=== PATIENT | female | born 1960 | race Caucasian/White ===

== ENCOUNTER → 2017-09-23 15:17 | Outpatient (CLI) | payer MEDICARE, OTHER, SELFPAY ==
--- NOTE | 2017-09-23 15:24 | DI.MRI.S_ITS ---
PROCEDURE: MR CERVICAL SPINE WO CON INDICATIONS: Neck pain with parasthesias of hands an fingers TECHNIQUE: Noncontrast sagittal T1 spin echo and T2 fast spin echo, sagittal STIR, foraminal oblique sagittal T2 fast spin echo, and axial gradient echo or T2 fast spin echo through the cervical spine. COMPARISON: [facility], CERVICAL SPINE 2 OR 3 VIEWS, 06/23/2017, 14:24. FINDINGS: Image quality: Excellent. Alignment and Curvature: There is normal bony alignment. Bone Marrow: Marrow demonstrates normal overall signal. Spinal Cord: Visualized spinal cord has normal size and signal. No cerebellar tonsillar herniation. Paraspinous Soft Tissues: No paravertebral masses. Prevertebral soft tissues are normal in thickness. C2-C3: Preserved disc height. Mild disc desiccation. There is mild posterior disc bulge. The central canal is patent. No foraminal stenosis. C3-C4: Preserved disc height. Mild disc desiccation. There is mild posterior disc bulge. Mild bilateral facet arthropathy. The central canal is patent. Mild bilateral foraminal stenosis. C4-C5: Preserved disc height. Mild disc desiccation. There is mild posterior disc bulge. Mild bilateral facet arthropathy. The central canal is patent. Mild bilateral foraminal stenosis. C5-C6: Preserved disc height. Mild disc desiccation. There is mild posterior disc bulge. Mild bilateral facet arthropathy. The central canal is patent. Mild bilateral foraminal stenosis. C6-C7: Mild loss of disc height and disc desiccation. There is diffuse circumferential disc bulge and disc osteophyte complex. Uncovertebral hypertrophy. The central canal is moderately narrowed. Mild bilateral foraminal stenosis. C7-T1: Normal appearance. IMPRESSION: 1. Multilevel degenerative disc disease and facet arthropathy as described. 2. Moderate central canal stenosis at C6-C7. 3. Multilevel mild foraminal stenosis bilaterally as described. Dictated by: Jerri Armendariz M.D. on 09/23/2017 at 15:17 Approved by: Jerri Armendariz M.D. on 09/23/2017 at 15:24
--- NOTE | 2017-09-23 15:24 | DI.MRI.S_ITS ---
PROCEDURE: MR LUMBAR SPINE WO CON INDICATIONS: Low back pain w/radiation to left leg TECHNIQUE: Noncontrast sagittal T1 spin echo and T2 fast echo, sagittal STIR, axial T1 and T2 fast spin echo through the lumbar spine. In cases with scoliosis, additional coronal T2 fast spin echo may be performed. COMPARISON: [facility], , L-SPINE 2-3 VIEWS, 10/10/2016, 15:15. FINDINGS: Image quality: Excellent. Alignment and Curvature: There is normal bony alignment. Bone Marrow: Marrow is of normal overall signal. No acute vertebral body compression fractures. Spinal Cord: Conus medullaris terminates at the L1 level. Visualized cord demonstrates normal signal and size. Paraspinous Soft Tissues: No paravertebral masses. L1-L2: Normal appearance. L2-L3: Normal appearance. L3-L4: Mild loss of disc height and disc desiccation. There is diffuse posterior disc bulge. Mild bilateral facet arthropathy and hypertrophy of ligamentum flavum. The central canal is mildly narrowed. No significant foraminal stenosis. L4-L5: Preserved disc height. Mild disc desiccation. There is diffuse posterior disc bulge and small posterior central annular tear. Mild bilateral facet arthropathy and hypertrophy of ligamentum flavum. The central canal is patent. No significant foraminal stenosis. L5-S1: Moderate loss of disc height and disc desiccation. There is diffuse posterior disc bulge and small posterior central annular tear. Mild bilateral facet arthropathy. The central canal is patent. Bxcy-bx-obrzjkvl bilateral foraminal stenosis. There is Tarlov cyst level of S1-S2. IMPRESSION: 1. Multilevel degenerative disc disease and facet arthropathy as described. 2. Mild central canal stenosis at L3-L4. 3. Zeyc-hh-rtqawrmm foraminal stenosis at L5-S1 bilaterally. 4. Tarlov cyst in sacrum at the level of S1-S2. Dictated by: Jerri Armendariz M.D. on 09/23/2017 at 17:09 Transcribed by: GRACY on 09/23/2017 at 17:09 Approved by: Jerri Armendariz M.D. on 09/23/2017 at 17:48
== END ==
PROVIDERS: Family Provider Physician Assistant; PCP Physician Assistant; Visit Provider Physician Assistant
DX: M50.31 Other cervical disc degeneration, high cervical region (principal); M48.02 Spinal stenosis, cervical region; M51.16 Intervertebral disc disorders with radiculopathy, lumbar region; M48.07 Spinal stenosis, lumbosacral region; M48.061 Spinal stenosis, lumbar region without neurogenic claudication; R20.2 Paresthesia of skin; M54.5 Low back pain
CPT/HCPCS: 72141; 72148

== ENCOUNTER → 2017-11-19 12:26 | Outpatient (CLI) | payer MEDICARE, OTHER, SELFPAY ==
--- NOTE | 2017-11-19 12:27 | DI.MG.S_ITS ---
BILATERAL DIGITAL DIAGNOSTIC MAMMOGRAM 3D/2D: 11/19/2017 CLINICAL: Left breast pain. Comparison is made to exams dated: 10/03/2016 mammogram, 11/30/2012 mammogram - [facility], and 08/23/2009 mammogram - [facility]. The tissue of both breasts is heterogeneously dense. This may lower the sensitivity of mammography. There is an irregular focal asymmetry in the left breast at 10 o'clock middle depth. No other significant masses, calcifications, or other findings are seen in either breast. IMPRESSION: INCOMPLETE: NEEDS ADDITIONAL IMAGING EVALUATION The irregular focal asymmetry in the left breast is indeterminate. An ultrasound is recommended. There is no mammographic abnormality seen in the left breast to correspond with the palpable abnormality, however, ultrasound is recommended. This exam was interpreted at Station ID: [id number]. NOTE: For mammograms, a report in lay terms will be sent to the patient. Approximately 15% of breast malignancies will not be visualized mammographically. In the management of a palpable breast mass, a negative mammogram must not discourage biopsy of a clinically suspicious lesion. Electronically Signed By: Minnie denise/gianni:11/19/2017 14:19:37 letter sent: Additional Imaging Needed ACR BI-RADS Category 0: Incomplete 3340F
--- NOTE | 2017-11-19 12:27 | DI.US.S_ITS ---
ULTRASOUND OF LEFT BREAST: 11/19/2017 CLINICAL: Focal left breast pain. Patient returns for additional imaging over a suspected mass in the left breast. Comparison is made to exams dated: 11/19/2017 mammogram, 10/03/2016 mammogram, and 11/30/2012 mammogram - [facility]. Color flow ultrasound of the left breast was performed on the areas of interest. Bueno scale images of the real-time examination were reviewed. There is a cluster of microcysts in the left breast at 9 o'clock middle depth. This correlates with mammography findings. IMPRESSION: PROBABLY BENIGN - FOLLOW-UP RECOMMENDED The cluster of microcysts in the left breast is probably benign. A follow-up mammogram in 6 months is recommended to demonstrate stability. There is no mammographic or sonographic abnormality seen in the left breast to correspond with the palpable abnormality, however, clinical followup is recommended. This exam was interpreted at Station ID: [id number]. Electronically Signed By: Minnie denies/:11/19/2017 15:52:16 letter sent: Followup Recommended Ultrasound BI-RADS: 3 Probably benign
== END ==
PROVIDERS: Family Provider Physician Assistant; PCP Physician Assistant; Visit Provider Physician Assistant
DX: R92.0 Mammographic microcalcification found on diagnostic imaging of breast (principal); N64.4 Mastodynia
CPT/HCPCS: 76642; 77066; G0279

== ENCOUNTER → 2018-10-19 10:33 | Outpatient (CLI) | payer MEDICARE, OTHER, SELFPAY ==
[2018-10-19 11:22] LABS: Alanine Aminotransferase 26 IU/L (9-52); Albumin 4.3 g/dL (3.5-5.0); Albumin Globulin Ratio 1.4 (1.0-2.8); Alkaline Phosphatase 98 U/L (38-126); Aspartate Aminotransferase 22 IU/L (14-36); BUN Creatinine Ratio 16.7 (6-22); Bilirubin Total 0.5 mg/dL (0.2-1.3); Blood Urea Nitrogen 15 mg/dL (7-17); Calcium 9.7 mg/dL (8.4-10.2); Carbon Dioxide 30 mmol/L (22-32); Chloride 104 mmol/L (98-107); Cholesterol 187 mg/dL (140-199); Estimated Glomerular Filt Rate > 60.0 mL/min (>60); Globulin 3.1 g/dL (1.7-4.1); Glucose 94 mg/dL (70-100); HDL Cholesterol 73 mg/dL (40-60); HEMOLYSIS < 15 (0-50); LDL Cholesterol Calculated 101 mg/dL (<100); Potassium 4.7 mmol/L (3.4-5.1); Sodium 140 mmol/L (137-145); Total Protein 7.4 g/dL (6.3-8.2); Triglycerides 66 mg/dL (35-150)
[2018-10-19 11:53] LABS: Thyroid Stimulating Hormone 1.53 uIU/mL (0.47-4.68)
== END ==
PROVIDERS: PCP Physician Assistant; Visit Provider Physician Assistant
DX: E78.5 Hyperlipidemia, unspecified (principal); E03.9 Hypothyroidism, unspecified
CPT/HCPCS: 36415; 80053; 80061; 84443

== ENCOUNTER → 2018-10-28 12:32 | Outpatient (CLI) | payer MEDICARE, OTHER, SELFPAY ==
--- NOTE | 2018-10-28 | DI.MG.S_ITS ---
BILATERAL DIGITAL DIAGNOSTIC MAMMOGRAM 3D/2D: 10/28/2018 CLINICAL: Patient returns for a 6 month follow up of the left breast. Due for bilateral imaging. Comparison is made to exams dated: 11/19/2017 mammogram, 10/03/2016 mammogram, 11/30/2012 mammogram - [facility], and 08/23/2009 mammogram - [facility]. The tissue of both breasts is heterogeneously dense. This may lower the sensitivity of mammography. There is an oval equal density asymmetry with an obscured and circumscribed margin in the left breast at 10 o'clock middle depth. This is not significantly changed. No other significant masses, calcifications, or other findings are seen in either breast. IMPRESSION: INCOMPLETE: NEEDS ADDITIONAL IMAGING EVALUATION The oval equal density asymmetry in the left breast is indeterminate. An ultrasound is recommended. This exam was interpreted at Station ID: [id number]. NOTE: For mammograms, a report in lay terms will be sent to the patient. Approximately 15% of breast malignancies will not be visualized mammographically. In the management of a palpable breast mass, a negative mammogram must not discourage biopsy of a clinically suspicious lesion. Electronically Signed By: Robinson sheriff/gianni:10/28/2018 13:17:07 ACR BI-RADS Category 0: Incomplete 3340F
--- NOTE | 2018-10-28 12:35 | DI.US.S_ITS ---
LIMITED ULTRASOUND OF LEFT BREAST AND AXILLA: 10/28/2018 CLINICAL: Patient returns for a 6 month follow up of the left breast. Comparison is made to exams dated: 10/28/2018 mammogram, 11/19/2017 ultrasound, 11/19/2017 mammogram, 10/03/2016 mammogram, 11/30/2012 mammogram - [facility], and 08/23/2009 mammogram - [facility]. Color flow and real-time ultrasound of the left breast 8-10 o'clock, and axilla regions were performed on the areas of interest. There is 0.8 cm x 0.3 cm x 0.6 cm oval mass with a circumscribed margin in the left breast at 9 o'clock middle depth. This oval mass is hypoechoic with a well-defined boundary. Color flow imaging demonstrates that there is no vascularity present. The previously identified complicated cyst is not identified on the current study. There is a mildly prominent lymph node in the left axilla with a preserved fatty hilum and measuring less than 1 cm in short axis. IMPRESSION: SUSPICIOUS OF MALIGNANCY The 0.8 cm x 0.3 cm x 0.6 cm oval mass in the left breast is at a low suspicion for malignancy. An ultrasound guided biopsy is recommended. There is no abnormality seen in the left breast to correspond with the previously visualized complicated cyst at 9 o'clock. No definite suspicious enlarged lymph nodes in the left axilla. The findings were discussed with the patient at the conclusion of the study by Dr. Rhodes. This exam was interpreted at Station ID: [id number]. Electronically Signed By: Robinson sheriff/:10/28/2018 14:15:23 letter sent: Biopsy Required Ultrasound BI-RADS: 4a Suspicious abnormality - low suspicion for malignancy
== END ==
PROVIDERS: PCP Physician Assistant; Visit Provider Physician Assistant
DX: R92.8 Other abnormal and inconclusive findings on diagnostic imaging of breast (principal)
CPT/HCPCS: 76642; 77066; G0279

== ENCOUNTER → 2018-11-15 07:44 | Outpatient (CLI) | payer MEDICARE, OTHER, SELFPAY ==
--- NOTE | 2018-11-15 | PATH_ITS ---
[facility] Accession Number: [id number] . 01 Material submitted: . breast - LEFT BREAST BIOPSY 900 7 CM FN 6 PASSES . 02 Diagnosis: Left Breast, 9 O'Clock, 7 CM FN, Core Needle Biopsies: Densely fibrous breast tissue with focal duct ectasia and rare microcysts, consistent with fibrocystic changes. Negative for atypical hyperplasia, in situ or invasive carcinoma. . . [facility] 11/17/2018 1403 Local . 02 Electronically signed: . Madeleine Angelo MD, Pathologist NPI- [id number] . 01 Gross description: . Received one formalin-filled container labeled with the patient's name and designated left breast biopsy 9 o'clock 7 cm FN, 6 passes. The specimen is received with a plastic filter in container, sample loose in container and consists of multiple yellow-romero portions of soft tissue which range in size from less than 0.1 cm to 0.5 x 0.3 x 0.3 cm. The specimen is filtered, wrapped, and entirely submitted in one cassette. Collection date: 11/15/2018. Possible collection time: 945. Total fixation time: 12 hours, up to 24. ([id number]) /[facility] 11/16/2018 0254 Local . 02 Pathologist provided ICD-10: N63.20 . 02 CPT . 974090 Performed at: [facility] [address] [facility], [place], [place] [id number] MD Robinson Longoria MD Phone: [phone] Performed at: [facility] [address] [place], [place] [id number] MD Madeleine Angelo MD Phone: [phone]
--- NOTE | 2018-11-15 | DI.MG.S_ITS ---
UNILATERAL LEFT DIGITAL DIAGNOSTIC MAMMOGRAM POST-NEEDLE BIOPSY: 11/15/2018 CLINICAL: Left breast mass. Comparison is made to exams dated: 10/28/2018 mammogram, 11/19/2017 mammogram, 10/03/2016 mammogram, 11/19/2017 ultrasound, 11/30/2012 mammogram - [facility], and 08/23/2009 mammogram - [facility]. The tissue of left breast is heterogeneously dense. This may lower the sensitivity of mammography. There is a new biopsy clip in the medial left breast at 9 o'clock position posterior depth. This is at the biopsy site of the ultrasound guided biopsy performed earlier today on 11/15/18. There is a pre-existing biopsy clip in the upper outer left breast at posterior depth which is stable in appearance on multiple prior mammograms dating back to at least 08/23/09. IMPRESSION: POST PROCEDURE MAMMOGRAM FOR MARKER PLACEMENT There is a new biopsy clip in the medial left breast at 9 o'clock position posterior depth. This is at the biopsy site of the ultrasound guided biopsy performed earlier today on 11/15/18. This exam was interpreted at Station ID: [id number]. NOTE: For mammograms, a report in lay terms will be sent to the patient. Approximately 15% of breast malignancies will not be visualized mammographically. In the management of a palpable breast mass, a negative mammogram must not discourage biopsy of a clinically suspicious lesion. Electronically Signed By: Patrick Raza M.D. ecl/:11/15/2018 09:58:09 ACR BI-RADS Category Post-procedure mammogram for marker placement
--- NOTE | 2018-11-15 07:46 | DI.US.S_ITS ---
ULTRASOUND GUIDED BIOPSY LEFT BREAST USING VACUUM DEVICE WITH MARKING DEVICE INSERTED AND POST DIGITAL MAMMOGRAPHIC IMAGIN11/15/2018 CLINICAL: Left breast mass. PATIENT CONSENT: Risks (minor bleeding, infection, vasovagal reaction and repeat procedure), benefits and alternatives were explained to the patient and written informed consent was obtained. Correlation is made to exams dated: 11/15/2018 mammogram, 10/28/2018 ultrasound, 10/28/2018 mammogram, 11/19/2017 ultrasound, 11/19/2017 mammogram, and 10/03/2016 mammogram - [facility]. An ultrasound guided biopsy using real-time ultrasound was performed for the concerning mass located in the left breast at 9 o'clock 7 cm from the nipple. This was described on the previous ultrasound report. The skin was prepped in the usual manner. 5 mL of 1% lidocaine and 5 mL of 1% lidocaine with epinephrine was used for local anesthesia. A skin stephen was made in the breast. The abnormality was approached from the lateral aspect. A 13 gauge biopsy needle was placed adjacent to the abnormality under ultrasound guidance. Once the needle was documented to be in the correct location, six specimens were obtained using the Mammotome biopsy system. A clip was inserted into the biopsy cavity. A skin adhesive was applied to the access site. Post procedure digital mammographic imaging demonstrates the location device at the targeted area. The specimens were sent to the laboratory for pathological analysis. IMPRESSION: ULTRASOUND GUIDED BIOPSY Ultrasound guided biopsy of the mass in the left breast at 9 o'clock 7 cm from the nipple was successful with no apparent post procedure complications. Final pathology results per pathologist Dr. Madeleine Angelo identified densely fibrous breast tissue with focal duct ectasia and rare microcysts, consistent with fibrocystic changes. Negative for atypical hyperplasia, in situ, or invasive carcinoma. These results are concordant with imaging. A follow-up mammogram and an ultrasound in 6 months is recommended to demonstrate stability. These results will be communicated to the patient's referring provider. This exam was interpreted at Station ID: [id number]. Patrick Raza M.D. ecl/:11/19/2018 06:29:02
== END ==
PROVIDERS: PCP Physician Assistant; Visit Provider Physician Assistant
DX: N60.42 Mammary duct ectasia of left breast (principal)
CPT/HCPCS: 19083; 77065; 88305

== ENCOUNTER → 2020-06-21 07:24 | Outpatient (CLI) | payer OTHER, SELFPAY ==
[2020-06-21 08:07] LABS: Add Manual Diff / Slide Review NO; Basophils Absolute Auto 100 /uL (0-100); Basophils Percent Auto 1.2 % (0-2); Eosinophils Absolute Auto 200 /uL (0-450); Eosinophils Percent Auto 4.1 % (2-4); Lymphocytes Absolute Auto 1700 /uL (1100-4500); Lymphocytes Percent Auto 36.8 % (25-40); Mean Corpuscular HGB Conc 34.3 % (30-36); Mean Corpuscular Hemoglobin 30.6 PG (26-34); Mean Corpuscular Volume 89.2 fL (80-100); Monocytes Absolute Auto 500 /uL (0-900); Monocytes Percent Auto 9.8 % (3-14); Neutrophils Absolute Auto 2200 /uL (1500-7000); Neutrophils Percent Auto 48.1 % (50-75); Platelet Count 271 X10^3/uL (150-400); Red Blood Cell Count 4.26 X10^6/uL (4.0-5.2); Red Cell Distribution Width 13.7 % (11.6-14.8); White Blood Cell Count 4.6 X10^3/uL (4.5-11.0)
[2020-06-21 08:40] LABS: BUN Creatinine Ratio 23.2 (6-22); Blood Urea Nitrogen 19 mg/dL (7-17); Calcium 9.5 mg/dL (8.4-10.2); Carbon Dioxide 24 mmol/L (22-32); Chloride 108 mmol/L (98-107); Estimated Glomerular Filt Rate > 60.0 mL/min (>60); Glucose 102 mg/dL (70-100); HEMOLYSIS < 15 (0-50); Potassium 4.4 mmol/L (3.4-5.1); Sodium 140 mmol/L (137-145)
[2020-06-21 09:01] LABS: Free T3, Triiodothyronine Free 3.67 pg/mL (2.77-5.27); Free T4, Direct Thyroxine 1.03 ng/dL (0.78-2.19)
== END ==
PROVIDERS: PCP Family Medicine; Referring Provider Family Medicine; Visit Provider Family Medicine
DX: E03.9 Hypothyroidism, unspecified (principal); E78.5 Hyperlipidemia, unspecified
CPT/HCPCS: 36415; 80048; 84439; 84443; 84481; 85025

== ENCOUNTER → 2020-06-26 13:18 | Outpatient (CLI) | payer OTHER, SELFPAY ==
--- NOTE | 2020-06-26 13:20 | DI.MG.S_ITS ---
BILATERAL DIGITAL DIAGNOSTIC MAMMOGRAM 3D/2D SHORT-TERM FOLLOW-UP: 06/26/2020 CLINICAL: Short term follow up of the left breast, due for bilateral imaging. Comparison is made to exams dated: 11/15/2018 mammogram, 10/28/2018 mammogram, 11/19/2017 mammogram, and 10/03/2016 mammogram - [facility]. The tissue of both breasts is heterogeneously dense. This may lower the sensitivity of mammography. The focal asymmetry in the left breast at 10 o'clock middle depth is no longer seen. No other significant masses, calcifications, or other findings are seen in either breast. IMPRESSION: INCOMPLETE: NEEDS ADDITIONAL IMAGING EVALUATION Biopsy clip appears in good position. No residual or recurrent mass is identified. An ultrasound is recommended to confirm the previously seen focal asymmetry which was biopsied has not recurred sonographically. This exam was interpreted at Station ID: [id number]. NOTE: For mammograms, a report in lay terms will be sent to the patient. Approximately 15% of breast malignancies will not be visualized mammographically. In the management of a palpable breast mass, a negative mammogram must not discourage biopsy of a clinically suspicious lesion. Electronically Signed By: Jayme Whelan acr/:06/26/2020 14:21:14 letter sent: Need Ultrasound ACR BI-RADS Category 0: Incomplete 3340F
--- NOTE | 2020-06-26 13:20 | DI.US.S_ITS ---
ULTRASOUND OF LEFT BREAST: 06/26/2020 CLINICAL: 6 month follow-up biopsy. Comparison is made to exams dated: 06/26/2020 mammogram, 11/15/2018 ultrasound biopsy, 11/15/2018 mammogram, 10/28/2018 ultrasound, 10/28/2018 mammogram, and 11/19/2017 [facility]. Real-time ultrasound of the left breast was performed. Bueno scale images of the real-time examination were reviewed. The biopsied benign mass in the left breast at 9 o'clock middle depth is no longer seen. IMPRESSION: BENIGN There is no sonographic evidence of malignancy. Return to annual mammogram screening schedule is recommended. This exam was interpreted at Station ID: [id number]. Electronically Signed By: Jayme Whelan acr/:06/26/2020 14:59:38 letter sent: Normal Exam Ultrasound BI-RADS: 2 Benign
== END ==
PROVIDERS: PCP Family Medicine; Referring Provider Family Medicine; Visit Provider Family Medicine
DX: R92.8 Other abnormal and inconclusive findings on diagnostic imaging of breast (principal)
CPT/HCPCS: 76642; 77066; G0279

== ENCOUNTER → 2020-07-09 10:30 | Outpatient (CLI) | payer OTHER, SELFPAY ==
[2020-07-09 12:34] LABS: COVID19 -Nasal RAPID Negative (Negative)
== END ==
PROVIDERS: PCP Family Medicine; Visit Provider Surgery
DX: Z20.822 Contact with and (suspected) exposure to COVID-19 (principal)
CPT/HCPCS: 87635; C9803

== ENCOUNTER 2020-07-10 07:18 | Day surgery (SDC) | payer OTHER, SELFPAY ==
[2020-07-10] VITALS (11 sets, daily range): BP systolic 103–138; BP diastolic 55–76; PULSE 67–86; RESP 10–20; TEMP 36.6; O2SAT 96–100; BMI 34.9
--- NOTE | 2020-07-10 | PATH_ITS ---
[facility] Accession Number: [id number] . 01 Material submitted: . cecum - CECAL POLYP . 01 Diagnosis: Cecal Polyp, Biopsy: Colonic mucosa with no diagnostic abnormality, consistent with polypoid redundancy. Negative for serrated lesion, dysplasia or malignancy. Additional step sections examined. [facility] 07/16/2020 1315 Local . 01 Electronically signed: . Isauro Deras MD, PhD, Pathologist NPI- [id number] . 01 Gross description: . CECAL POLYP: Received in formalin is 1 fragment(s) of romero, soft tissue measuring 0.2 x 0.2 x 0.2 cm submitted entirely in 1 cassette(s) /[facility] 07/11/2020 1904 Local . 01 Microscopic: . . . 01 Pathologist provided ICD-10: K63.5 . 01 CPT . 148293 Performed at: [address], [place], [place] [id number] MD Robinson Longoria MD Phone: [phone]
[2020-07-10] MEDS: LACTATED RINGERS 1,000 ML 150 ML IV (07:30)
--- NOTE | 2020-07-10 08:34 | PM.HP.1 ---
History of Present Illness History of Present Illness Date Patient Seen: 07/10/20 Time Patient Seen: 08:35 [place] [facility] [place] Screening for colon cancer. Second scope. last scope 8 years +polyps non adenomatous. no family history for colon cancer. Patient History Medical History Abnormal mammogram of left breast ADHD (attention deficit hyperactivity disorder) Anxiety Caregiver stress syndrome (01/07/17) Chronic low back pain (~2011) Chronic neck pain Colon polyps Depression Encounter for routine gynecological examination Fibromyalgia (08/19/12) Hyperlipidemia (08/19/12) Hypothyroidism (10/12/13) Family & Social History Family History Father History of colon polyps Mother Cancer Social History: household members none Tobacco & Substance use: Smoking Status Never smoker alcohol intake current Substance Use Type does not use Meds Home Medications and Allergies Home Medications Medication Instructions Recorded Confirmed Type atorvastatin 20 mg tablet 20 mg PO DAILY #90 tab 12/01/19 07/10/20 Rx levothyroxine 50 mcg tablet 50 mcg PO QAM #90 tab 06/27/20 07/10/20 Rx Allergies Allergy/AdvReac Type Severity Reaction Status Date / Time No Known Drug Allergies Allergy Verified 07/10/20 07:44 Exam Vital Signs (past 8 hours): - 07/10/20 07:45 Temperature 97.8 F Pulse Rate 86 Respiratory Rate 16 Blood Pressure 138/76 Pulse Oximetry 99 Oxygen Delivery Method Room Air Const General: cooperative and healthy appearing HENWY Head: normal to inspection Ears: hearing grossly normal bilaterally Nose: external nose normal Eyes General: appearance normal, both eyes and all related structures Sclera: sclerae normal Neck Neck: trachea midline Chest Chest: normal inspection of the chest Resp Effort & Inspection: normal respiratory effort and able to speak in complete sentences Auscultation: clear to auscultation bilaterally Cardio Rate: regular rate Rhythm: regular rhythm GI Inspection: normal to inspection Palpation: soft Skin General: no rashes or lesions noted Lesions: no lesions Trauma: no lacerations or abrasions Neuro General: patient alert and patient oriented x3 Psych Judgment: judgment good Objective ECG Impression: screening colonscopy Assessment & Plan Assessment & Plan narrative: colonscopy with moderate sedation COVID-19 COVID-19 status: Negative Time Spent With Patient Time with patient: 15-24 minutes
--- NOTE | 2020-07-10 08:43 | SUR.OPER ---
GLASSES IN LABELED BAG TO PACU WITH PATIENT.
[2020-07-10] MEDS: fentaNYL 250 MCG/5 ML INJ IV (08:45)
[2020-07-10] MEDS: MIDAZOLAM 5 MG/5 ML VIAL IV (08:45)
--- NOTE | 2020-07-10 08:54 | PM.OP.1 ---
Operative Date/Time/Diagnoses Date of procedure: 07/10/20 Time of procedure: 08:54 Pre-op diagnosis: screening colonoscopy Post-op diagnosis: same Procedure & Clinicians Procedure: colonoscopy with moderate sedation Same procedure as scheduled: Yes Indications: screening Surgeon: Jaquelin Sidhu Click Yes if Unassisted: No Anesthesia Type: Sedation Operative Notes Findings: single polyp in cecum, 3mm, cold forcep Estimated Blood Loss (mL): 0 Procedure in detail: Prep diagnosis: Screening colon cancer Postop diagnosis: Same Operative procedure: Colonoscopy with moderate sedation, cold forceps polypectomy Surgeon: Breanne Sidhu MD Sedation: 7 mg of Versed 150 mcg of fentanyl Findings: Single 3 mm polyp in the cecum with gross appearance of adenomatous. Taken with cold forceps Procedure: Patient placed in a lateral position. Rectal exam is performed showing normal tone no masses. Colonoscope was inserted into the rectum and advanced to the ileocecal valve with minimal difficulty. Insufflation and extraction of the scope including a retroflex in the rectum had the above findings. Polyps seen in cecum was taken with cold forceps Impression: Single polyp taken with cold forceps, location of the cecum. Size 3 mm with gross features of adenoma Plan: Repeat colonoscopy in 5 years unless pathology suggest otherwise. Bowel prep quality excellent Complications: none Post-operative Condition: stable Disposition: PACU Plan for aftercare: Discharge home
== END 2020-07-10 10:15 | disposition home or self-care (01) ==
PROVIDERS: PCP Family Medicine; Referring Provider Family Medicine; Visit Provider Surgery
PROC: 0DJD8ZZ Inspection of Lower Intestinal Tract, Via Natural or Artificial Opening Endoscopic (ICD-10-PCS; CPT 45378; principal; 2020-07-10 08:30)
DX: Z12.11 Encounter for screening for malignant neoplasm of colon (principal); Z86.010 Personal history of colon polyps; M79.7 Fibromyalgia; E78.5 Hyperlipidemia, unspecified; E03.9 Hypothyroidism, unspecified; F41.9 Anxiety disorder, unspecified; K63.5 Polyp of colon
CPT/HCPCS: 45380; J2250; J3010

== ENCOUNTER → 2020-09-25 09:17 | Outpatient (CLI) | payer OTHER, SELFPAY ==
[2020-09-25 10:32] LABS: Cholesterol 260 mg/dL (140-199); HDL Cholesterol 79 mg/dL (40-60); LDL Cholesterol Calculated 156 mg/dL (<100); Triglycerides 125 mg/dL (35-150)
== END ==
PROVIDERS: PCP Family Medicine; Referring Provider Family Medicine; Visit Provider Family Medicine
DX: E78.5 Hyperlipidemia, unspecified (principal)
CPT/HCPCS: 36415; 80061

== ENCOUNTER → 2021-11-08 16:36 | Outpatient (CLI) | payer OTHER, SELFPAY ==
[2021-11-08 17:39] LABS: COVID19 -Nasal RAPID Negative (Negative)
== END ==
PROVIDERS: PCP Family Medicine; Visit Provider Nurse Practitioner Family
DX: Z20.822 Contact with and (suspected) exposure to COVID-19 (principal)
CPT/HCPCS: 87635

== ENCOUNTER → 2022-04-10 16:21 | Outpatient (CLI) | payer OTHER, SELFPAY ==
--- NOTE | 2022-04-10 16:22 | DI.MG.S_ITS ---
BILATERAL DIGITAL SCREENING MAMMOGRAM 3D/2D WITH CAD: 04/10/2022 CLINICAL: Routine screening. Family history of breast cancer. Comparison is made to exams dated: 06/26/2020 mammogram, 11/15/2018 mammogram, 10/28/2018 mammogram, and 11/19/2017 mammogram - [facility]. Both breasts are heterogeneously dense, which may obscure small masses (category c / 51-75% glandular tissue). Current study was also evaluated with a Computer Aided Detection (CAD) system. No significant masses, calcifications, or other findings are seen in either breast. There has been no significant interval change. IMPRESSION: NEGATIVE There is no mammographic evidence of malignancy. A 1 year screening mammogram is recommended. Based on Tyrer-Cuzick model (a risk assessment model), the patient's lifetime risk is 28.6% and her 10 year risk is 12.4%. If a patient has an elevated risk, a more comprehensive evaluation should be considered and/or a referral to a genetic counselor. The [employer] [employer], [employer], and NCCN Guidelines advise the consideration of Breast MRI as an adjunct to screening mammography in patients whose Lifetime risk to develop breast cancer is 20% or higher. This exam was interpreted at Station ID: [id number]. NOTE: For mammograms, a report in lay terms will be sent to the patient. Approximately 15% of breast malignancies will not be visualized mammographically. In the management of a palpable breast mass, a negative mammogram must not discourage biopsy of a clinically suspicious lesion. Electronically Signed By: Joss Hicks M.D., jr/gianni:04/11/2022 13:59:22 letter sent: Normal Exam ACR BI-RADS Category 1: Negative [id number]
== END ==
PROVIDERS: PCP Family Medicine; Referring Provider Family Medicine; Visit Provider Family Medicine
DX: Z12.31 Encounter for screening mammogram for malignant neoplasm of breast (principal)
CPT/HCPCS: 77063; 77067

== ENCOUNTER → 2022-05-15 14:30 | Outpatient (CLI) | payer OTHER, SELFPAY ==
[2022-05-15 15:36] LABS: Add Manual Diff / Slide Review NO; Basophils Absolute Auto 0 /uL (0-100); Basophils Percent Auto 0.8 % (0-2); Eosinophils Absolute Auto 200 /uL (0-450); Eosinophils Percent Auto 2.9 % (2-4); Hematocrit 38.8 % (36-46); Hemoglobin 13.1 g/dL (12.0-16.0); Lymphocytes Absolute Auto 1900 /uL (1100-4500); Lymphocytes Percent Auto 32.7 % (25-40); Mean Corpuscular HGB Conc 33.9 % (30-36); Mean Corpuscular Hemoglobin 29.6 PG (26-34); Mean Corpuscular Volume 87.6 fL (80-100); Monocytes Absolute Auto 400 /uL (0-900); Monocytes Percent Auto 7.8 % (3-14); Neutrophils Absolute Auto 3200 /uL (1500-7000); Neutrophils Percent Auto 55.8 % (50-75); Platelet Count 293 X10^3/uL (150-400); Red Blood Cell Count 4.43 X10^6/uL (4.0-5.2); Red Cell Distribution Width 13.7 % (11.6-14.8); White Blood Cell Count 5.7 X10^3/uL (4.5-11.0)
[2022-05-15 15:52] LABS: Alanine Aminotransferase 30 IU/L (<35); Albumin 4.3 g/dL (3.5-5.0); Albumin Globulin Ratio 1.3 (1.0-2.8); Alkaline Phosphatase 87 U/L (38-126); Aspartate Aminotransferase 26 IU/L (14-36); Bilirubin Total 0.6 mg/dL (0.2-1.3); Blood Urea Nitrogen 16 mg/dL (7-17); Calcium 9.2 mg/dL (8.4-10.2); Carbon Dioxide 27 mmol/L (22-32); Chloride 102 mmol/L (98-107); Cholesterol 253 mg/dL (140-199); Estimated Glomerular Filt Rate > 60 mL/min (>60); Globulin 3.3 g/dL (1.7-4.1); Glucose 90 mg/dL (80-110); HDL Cholesterol 71 mg/dL (40-60); HEMOLYSIS < 15 (0-50); LDL Cholesterol Calculated 165 mg/dL (<100); Potassium 4.2 mmol/L (3.4-5.1); Sodium 136 mmol/L (137-145); Total Protein 7.6 g/dL (6.3-8.2); Triglycerides 84 mg/dL (35-150)
[2022-05-15 16:44] LABS: Vitamin D 25 Hydroxy (D3) 23.8 ng/mL (30.0-100.0)
[2022-05-15 16:58] LABS: TSH w/ Reflex to FT4 3.42 uIU/mL (0.47-4.68)
== END ==
PROVIDERS: PCP Family Medicine; Referring Provider Family Medicine; Visit Provider Family Medicine
DX: E03.9 Hypothyroidism, unspecified (principal); Z68.37 Body mass index [BMI] 37.0-37.9, adult; E78.5 Hyperlipidemia, unspecified
CPT/HCPCS: 36415; 80053; 80061; 82306; 84443; 85025

== ENCOUNTER → 2022-05-26 09:02 | Outpatient (CLI) | payer OTHER, SELFPAY ==
--- NOTE | 2022-05-26 09:03 | DI.RAD.S_ITS ---
PROCEDURE: XR LUMBAR SPINE MIN 4V INDICATIONS: LOW BACK PAIN TECHNIQUE: 5 views of the lumbar spine acquired, including flexion and extension views. COMPARISON: [facility], , L-SPINE 2-3 VIEWS, 10/10/2016, 15:15. FINDINGS: Bones: 5 nonrib-bearing vertebrae are present. 2 mm retrolisthesis L1-L2, L2-L3, L3-L4 and L4-L5. Multilevel disc height loss with endplate sclerosis and spurring, severe at the L5-S1 level. Mild facet joint arthropathy L4-L5 and L5-S1. No vertebral body compression fractures. No suspicious bony lesions. Oblique views demonstrate no intra-articular is pars defects. Soft tissues: Overlying bowel gas pattern is normal. No suspicious soft tissue calcifications. IMPRESSION: Multilevel lumbar spine spondylosis, most notably with severe disc degeneration at the L5-S1 level. Dictated by: Aaron Ferro [facility] Interpreted: Kit Whelan MD on 05/26/2022 at 9:25 Transcribed by: AL on 05/26/2022 at 9:28 Approved by: Jayme Whelan M.D. on 05/26/2022 at 12:37
== END ==
PROVIDERS: PCP Family Medicine; Referring Provider Anesthesiology; Visit Provider Anesthesiology
DX: M47.27 Other spondylosis with radiculopathy, lumbosacral region; M47.26 Other spondylosis with radiculopathy, lumbar region; M51.17 Intervertebral disc disorders with radiculopathy, lumbosacral region; M54.50 Low back pain, unspecified; M54.12 Radiculopathy, cervical region; M54.2 Cervicalgia; M53.3 Sacrococcygeal disorders, not elsewhere classified; M70.61 Trochanteric bursitis, right hip; G89.29 Other chronic pain
CPT/HCPCS: 72110; 99214

== ENCOUNTER → 2022-07-29 11:08 | Outpatient (CLI) | payer OTHER, SELFPAY ==
--- NOTE | 2022-07-29 11:10 | DI.MRI.S_ITS ---
PROCEDURE: MR LUMBAR SPINE WO CON INDICATIONS: Lumbar radiculopathy TECHNIQUE: Noncontrast sagittal T1 spin echo and T2 fast echo, sagittal STIR, and T2 fast spin echo through the lumbar spine. In cases with scoliosis, additional coronal T2 fast spin echo may be performed. COMPARISON: [facility], MR, MR LUMBAR SPINE WO CON, 09/23/2017, 15:57. FINDINGS: Image quality: Excellent. Alignment and Curvature: There is normal bony alignment. Bone Marrow: Marrow is of normal overall signal. No acute vertebral body compression fractures. Spinal Cord: Conus medullaris terminates at the L1-L2 level. Visualized cord demonstrates normal signal and size. Paraspinous Soft Tissues: No paravertebral masses. T12-L1: Mild disc bulge. No canal stenosis or foraminal stenosis. L1-L2: Mild facet hypertrophy. No canal stenosis or foraminal stenosis. L2-L3: Mild facet hypertrophy. No canal stenosis or foraminal stenosis. L3-L4: Stable findings. Disc bulge. Facet hypertrophy. Epidural lipomatosis. Mild canal stenosis. No significant foraminal stenosis. L4-L5: Slight interval progression. Posterior annulus tear is more prominent, with mild central posterior disc protrusion. Facet hypertrophy. Mild canal stenosis. No significant foraminal stenosis. L5-S1: Prominent facet hypertrophy. No canal stenosis. Ftlf-lx-mpadfowr right foraminal stenosis. IMPRESSION: 1. There is mild interval progression at L4-L5. There is posterior annulus tear with mild central posterior disc protrusion. There is mild canal stenosis. 2. Unchanged mild canal stenosis is also present at L3-L4. 3. Multilevel facet arthropathy. Dictated by: Geovanny Son M.D. on 07/29/2022 at 17:26 Approved by: Geovanny Son M.D. on 07/29/2022 at 17:32
--- NOTE | 2022-07-29 11:10 | DI.MRI.S_ITS ---
PROCEDURE: MR CERVICAL SPINE WO CON INDICATIONS: Cervical radiculopathy TECHNIQUE: Noncontrast sagittal T1 spin echo and T2 fast spin echo, sagittal STIR, foraminal oblique sagittal T2 fast spin echo, and axial gradient echo or T2 fast spin echo through the cervical spine. COMPARISON: [facility], MR, MR CERVICAL SPINE WO CON, 09/23/2017, 15:33. FINDINGS: Image quality: Excellent. Alignment and Curvature: There is mild straightening of normal cervical lordosis. Bone Marrow: There is no marrow edema. No acute vertebral body compression fracture. Degenerative endplate changes are noted at C6-7 level. Spinal Cord: Visualized spinal cord has normal size and signal. No cerebellar tonsillar herniation. Paraspinous Soft Tissues: No paravertebral masses. Prevertebral soft tissues are normal in thickness. C2-C3: Loss of disc signal. No significant disc bulge, canal stenosis or neural foraminal narrowing. C3-C4: Loss of disc signal. Preserved disc height. Bilateral facet hypertrophic changes are seen. Mild broad-based disc bulge is seen. No significant central canal stenosis. Mild bilateral neural foraminal narrowing is noted. C4-C5: Loss of disc signal. Broad-based disc bulge and bilateral facet hypertrophic changes are seen. Mild central canal stenosis and mild right-sided neural foraminal narrowing is seen. C5-C6: Loss of disc signal. Broad-based disc bulge and bilateral facet hypertrophic changes are noted with mild central canal stenosis and mild bilateral neural foraminal narrowing. C6-C7: There is loss of disc height and disc signal. Broad-based disc bulge and bilateral facet hypertrophic changes are noted causing moderate central canal stenosis and bilateral neural foraminal narrowing. C7-T1: Normal appearance. IMPRESSION: 1. Yahs-hb-kwusxzcn degenerative disc disease throughout cervical spine causing various degrees of central canal stenosis and bilateral neural foraminal narrowing most notably at C6-7 level as described in detail above. 2. No marrow edema. No acute compression fracture or spondylolisthesis. 3. No abnormal cervical spinal cord signal. Dictated by: Bridger Woo M.D. on 07/30/2022 at 8:05 Approved by: Bridger Woo M.D. on 07/30/2022 at 8:21
== END ==
PROVIDERS: PCP Family Medicine; Referring Provider Anesthesiology; Visit Provider Anesthesiology
DX: M51.36 Other intervertebral disc degeneration, lumbar region (principal); M48.061 Spinal stenosis, lumbar region without neurogenic claudication; M47.816 Spondylosis without myelopathy or radiculopathy, lumbar region; M50.11 Cervical disc disorder with radiculopathy, high cervical region; M48.02 Spinal stenosis, cervical region
CPT/HCPCS: 72141; 72148

== ENCOUNTER 2022-09-24 09:38 | Outpatient (CLI) | payer OTHER, SELFPAY ==
--- NOTE | 2022-09-24 09:39 | DI.RAD.S_ITS ---
PROCEDURE: PAIN L INTERLAMINAR/CAUDAL INJ INDICATIONS: SPONDYLOSIS COMPARISON: [facility], MR, MR LUMBAR SPINE WO CON, 07/29/2022, 11:50. FINDINGS: Fluoroscopic spot filming was performed to verify placement of a spinal needle at the L4-L5 level, as labeled on the films. Appropriate location of the needle tip was confirmed by injection of iodinated contrast. IMPRESSION: Intraprocedural examination within normal limits. Dictated by: Ramu Rondon M.D. on 09/24/2022 at 13:06 Approved by: Ramu Rondon M.D. on 09/24/2022 at 13:08
[2022-09-24 10:00] VITALS: BP 129/70; PULSE 72; RESP 20; TEMP 36.1; O2SAT 97
[2022-09-24 10:32] VITALS: BP 147/66; PULSE 71; RESP 12; O2SAT 99
[2022-09-24] MEDS: MIDAZOLAM 2 MG/2 ML VIAL IV (10:34)
[2022-09-24] MEDS: DEXAMETHASONE 10 MG/ML VIAL INJ (10:35)
[2022-09-24] MEDS: IOPAMIDOL 15 ML VIAL 3 ML INJ (10:36)
[2022-09-24 10:37] VITALS: BP 122/75; PULSE 67; RESP 16; O2SAT 98
[2022-09-24 10:46] VITALS: BP 137/67; PULSE 64; RESP 18; O2SAT 98
[2022-09-24 10:50] VITALS: BP 137/62; PULSE 71; RESP 16; O2SAT 96
[2022-09-24 10:54] VITALS: BP 129/63; PULSE 72; RESP 20; O2SAT 97
--- NOTE | 2022-09-24 12:22 | P.PCN_ITS ---
Date/Time/Diagnoses Date of procedure: 09/24/22 Time of procedure: 10:30 Procedure Notes Physician: Robbi Adams Total Fluoroscopy time (seconds): 11 Total sedation minutes: 5 Procedure in detail & Post-procedure care: L4-5 Interlaminar Epidural Steroid Injection Indications: Anaid is presenting for treatment of lumbar radiculopathy with low back and leg pain. Preoperative diagnosis: Lumbar radiculopathy Postoperative diagnosis: Same Focused Examination: Ax3 Mood and affect are normal Vital Signs: VSS ASA: 2 Consent: Following review of allergies and potential side effects/complications, including, but not necessarily limited to, infection, allergic reaction, local tissue breakdown, stroke, temporary or permanent nerve injury, paralysis, and possible , the patient indicated that they understood and agreed to proce ed.? An informed consent document was signed by the patient, witnessed by a nurse and placed in the patient's chart.? Additionally, other treatment options including medications and physical therapy were reviewed with the patient. All questions were answered. Site was then marked. Anesthesia: After review of previous anesthetic history and IV conscious sedation, the patient was deemed safe to proceed with today's procedure with IV conscious sedation. IV sedation was accomplished with midazolam 2 mg administered by the RN after order by Dr. Adams. Sedation was titrated to patient comfort during the course of the procedure. Patient remained responsive to all verbal commands. Position: Prone Monitoring: NIBP, Pulse oximetry, 3 lead EKG Needle used: 18 G 3.5? Tuohy Contrast: Isovue 300M Injectate: Dexamethasone 10 mg with 1% lidocaine 2 mL Technique: The skin was prepped with chloraprep and then draped in a sterile fashion. Time out was performed as per protocol. Oxygen applied via NC. Skin and subcutaneous structures of the needle entry site was then infiltrated with 3 mL of lidocaine 1%. Under AP, lateral and contralateral oblique fluoroscopic control, the Tuohy needle was guided into the L4-5 epidural space. The space was accessed with loss of resistance technique. Isovue 300M was then injected and the spread was consistent with the epidural space. There was no evidence for intravascular or intrathecal uptake. After negative aspiration, the above- mentioned injectate was then slowly administered and the needle withdrawn. The patient expressed no unusual discomfort or paresthesias during the injection. Band-Aids applied to injection sites. EBL: less than 1 ml Complications: None Post Procedure: Patient was taken to the recovery and monitored. The patient was provided a Pain Log to continue to record the patient's response to the target- specific procedure prior to the patient's follow-up visit with the referring physician. Patient was stable upon discharge. Detailed post procedure instructions were provided. Patient was asked to call in the event of worsening pain, fever, weakness, numbness or bladder or bowel incontinence.
== END 2022-09-24 11:17 | disposition home or self-care (01) ==
LOC: RAD 09:39
PROVIDERS: PCP Family Medicine; Referring Provider Anesthesiology; Visit Provider Anesthesiology
DX: M54.16 Radiculopathy, lumbar region (principal)
CPT/HCPCS: 62323; 99152; J1100; J2250

== ENCOUNTER → 2023-04-11 08:37 | Outpatient (CLI) | payer OTHER, SELFPAY ==
--- NOTE | 2023-04-11 | DI.MG.S_ITS ---
BILATERAL DIGITAL SCREENING MAMMOGRAM 3D/2D WITH CAD: 04/11/2023 CLINICAL: Routine screening. Family history of breast cancer. Comparison is made to exams dated: 04/10/2022 mammogram, 06/26/2020 mammogram, 11/15/2018 mammogram, 10/28/2018 mammogram, and 11/19/2017 mammogram - [facility]. Both breasts are heterogeneously dense, which may obscure small masses (category c / 51-75% glandular tissue). Current study was also evaluated with a Computer Aided Detection (CAD) system. No significant masses, calcifications, or other findings are seen in either breast. There has been no significant interval change. IMPRESSION: NEGATIVE There is no mammographic evidence of malignancy. A 1 year screening mammogram is recommended. Based on Tyrer-Cuzick model (a risk assessment model), the patient's lifetime risk is 28.0% and her 10 year risk is 12.6%. If a patient has an elevated risk, a more comprehensive evaluation should be considered and/or a referral to a genetic counselor. The [place] [employer], [employer], and NCCN Guidelines advise the consideration of Breast MRI as an adjunct to screening mammography in patients whose Lifetime risk to develop breast cancer is 20% or higher. This exam was interpreted at Station ID: [id number]. NOTE: For mammograms, a report in lay terms will be sent to the patient. Approximately 15% of breast malignancies will not be visualized mammographically. In the management of a palpable breast mass, a negative mammogram must not discourage biopsy of a clinically suspicious lesion. Electronically Signed By: Yasir lewis/gianni:04/13/2023 08:59:56 letter sent: Normal Exam ACR BI-RADS Category 1: Negative [id number]
== END ==
LOC: MAMMO 08:37
PROVIDERS: PCP Family Medicine; Referring Provider Family Medicine; Visit Provider Family Medicine
DX: Z12.31 Encounter for screening mammogram for malignant neoplasm of breast (principal); Z80.3 Family history of malignant neoplasm of breast; R92.333 Mammographic heterogeneous density, bilateral breasts
CPT/HCPCS: 77063; 77067

== ENCOUNTER → 2023-07-07 08:18 | Outpatient (CLI) | payer OTHER, SELFPAY ==
[2023-07-07 09:40] LABS: Add Manual Diff / Slide Review NO; Basophils Absolute Auto 0 /uL (0-100); Basophils Percent Auto 0.9 % (0-2); Eosinophils Absolute Auto 200 /uL (0-450); Eosinophils Percent Auto 3.4 % (2-4); Hematocrit 38.8 % (36-46); Hemoglobin 13.2 g/dL (12.0-16.0); Lymphocytes Absolute Auto 2000 /uL (1100-4500); Lymphocytes Percent Auto 36.2 % (25-40); Mean Corpuscular HGB Conc 34.1 % (30-36); Mean Corpuscular Hemoglobin 31.1 PG (26-34); Mean Corpuscular Volume 91.2 fL (80-100); Monocytes Absolute Auto 500 /uL (0-900); Monocytes Percent Auto 8.7 % (3-14); Neutrophils Absolute Auto 2700 /uL (1500-7000); Neutrophils Percent Auto 50.8 % (50-75); Platelet Count 326 X10^3/uL (150-400); Red Blood Cell Count 4.26 X10^6/uL (4.0-5.2); Red Cell Distribution Width 13.6 % (11.6-14.8); White Blood Cell Count 5.4 X10^3/uL (4.5-11.0)
[2023-07-07 10:06] LABS: Alanine Aminotransferase 32 IU/L (<35); Albumin 4.4 g/dL (3.5-5.0); Albumin Globulin Ratio 1.6 (1.0-2.8); Alkaline Phosphatase 93 U/L (38-126); Aspartate Aminotransferase 28 IU/L (14-36); BUN Creatinine Ratio 23.1 (6-22); Bilirubin Total 0.6 mg/dL (0.2-1.3); Blood Urea Nitrogen 18 mg/dL (7-17); Calcium 9.8 mg/dL (8.4-10.2); Carbon Dioxide 26 mmol/L (22-32); Chloride 108 mmol/L (98-107); Cholesterol 239 mg/dL (140-199); Estimated Glomerular Filt Rate > 60 mL/min (>60); Globulin 2.8 g/dL (1.7-4.1); Glucose 92 mg/dL (80-110); HDL Cholesterol 76 mg/dL (40-60); HEMOLYSIS < 15 (0-50); LDL Cholesterol Calculated 146 mg/dL (<100); Potassium 4.8 mmol/L (3.4-5.1); Sodium 138 mmol/L (137-145); Total Protein 7.2 g/dL (6.3-8.2); Triglycerides 83 mg/dL (35-150)
[2023-07-07 10:19] LABS: Vitamin D 25 Hydroxy (D3) 35.8 ng/mL (30.0-100.0)
[2023-07-07 10:31] LABS: TSH w/ Reflex to FT4 4.03 uIU/mL (0.47-4.68)
== END ==
PROVIDERS: PCP Family Medicine; Referring Provider Family Medicine; Visit Provider Family Medicine
DX: E03.9 Hypothyroidism, unspecified (principal); E78.5 Hyperlipidemia, unspecified
CPT/HCPCS: 36415; 80053; 80061; 82306; 84443; 85025

== ENCOUNTER → 2023-11-09 09:12 | Outpatient (CLI) | payer OTHER, SELFPAY ==
[2023-11-09 10:29] LABS: Add Manual Diff / Slide Review NO; Basophils Absolute Auto 0 /uL (0-100); Basophils Percent Auto 0.8 % (0-2); Eosinophils Absolute Auto 100 /uL (0-450); Eosinophils Percent Auto 3.2 % (2-4); Hemoglobin 12.9 g/dL (12.0-16.0); Lymphocytes Absolute Auto 1700 /uL (1100-4500); Lymphocytes Percent Auto 37.5 % (25-40); Mean Corpuscular HGB Conc 33.9 % (30-36); Mean Corpuscular Hemoglobin 30.6 PG (26-34); Mean Corpuscular Volume 90.4 fL (80-100); Monocytes Absolute Auto 400 /uL (0-900); Monocytes Percent Auto 7.9 % (3-14); Neutrophils Absolute Auto 2300 /uL (1500-7000); Neutrophils Percent Auto 50.6 % (50-75); Platelet Count 292 X10^3/uL (150-400); Red Cell Distribution Width 13.8 % (11.6-14.8); White Blood Cell Count 4.6 X10^3/uL (4.5-11.0)
[2023-11-09 10:50] LABS: Alanine Aminotransferase 23 IU/L (<35); Albumin 3.9 g/dL (3.5-5.0); Albumin Globulin Ratio 1.3 (1.0-2.8); Alkaline Phosphatase 105 U/L (38-126); Aspartate Aminotransferase 22 IU/L (14-36); BUN Creatinine Ratio 24.4 (6-22); Bilirubin Total 0.6 mg/dL (0.2-1.3); Blood Urea Nitrogen 19 mg/dL (7-17); Calcium 9.5 mg/dL (8.4-10.2); Carbon Dioxide 24 mmol/L (22-32); Cholesterol 179 mg/dL (140-199); Estimated Glomerular Filt Rate > 60 mL/min (>60); Globulin 2.9 g/dL (1.7-4.1); Glucose 93 mg/dL (80-110); HDL Cholesterol 86 mg/dL (40-60); HEMOLYSIS < 15 (0-50); LDL Cholesterol Calculated 73 mg/dL (<100); Total Protein 6.8 g/dL (6.3-8.2); Triglycerides 99 mg/dL (35-150)
[2023-11-09 11:08] LABS: Vitamin D 25 Hydroxy (D3) 27.7 ng/mL (30.0-100.0)
[2023-11-09 11:29] LABS: TSH w/ Reflex to FT4 2.63 uIU/mL (0.47-4.68)
[2023-11-09 11:31] LABS: Chloride 107 mmol/L (98-107); Potassium 4.6 mmol/L (3.4-5.1); Sodium 136 mmol/L (137-145)
== END ==
LOC: LAB 09:13
PROVIDERS: PCP Family Medicine; Referring Provider Family Medicine; Visit Provider Family Medicine
DX: E03.9 Hypothyroidism, unspecified (principal); E55.9 Vitamin D deficiency, unspecified; E78.5 Hyperlipidemia, unspecified; Z68.36 Body mass index [BMI] 36.0-36.9, adult
CPT/HCPCS: 36415; 80053; 80061; 82306; 84443; 85025

== ENCOUNTER → 2024-03-09 09:30 | Outpatient (CLI) | payer OTHER, SELFPAY ==
[2024-03-09 09:55] LABS: Add Manual Diff / Slide Review NO; Basophils Absolute Auto 100 /uL (0-100); Basophils Percent Auto 1.1 % (0-2); Eosinophils Absolute Auto 200 /uL (0-450); Eosinophils Percent Auto 3.1 % (2-4); Hemoglobin 13.2 g/dL (12.0-16.0); Lymphocytes Absolute Auto 1700 /uL (1100-4500); Lymphocytes Percent Auto 33.6 % (25-40); Mean Corpuscular HGB Conc 33.9 % (30-36); Mean Corpuscular Hemoglobin 30.3 PG (26-34); Mean Corpuscular Volume 89.4 fL (80-100); Monocytes Absolute Auto 500 /uL (0-900); Monocytes Percent Auto 9.8 % (3-14); Neutrophils Absolute Auto 2700 /uL (1500-7000); Neutrophils Percent Auto 52.4 % (50-75); Platelet Count 326 X10^3/uL (150-400); Red Blood Cell Count 4.37 X10^6/uL (4.0-5.2); White Blood Cell Count 5.1 X10^3/uL (4.5-11.0)
[2024-03-09 10:14] LABS: Alanine Aminotransferase 27 IU/L (<35); Albumin 4.1 g/dL (3.5-5.0); Albumin Globulin Ratio 1.4 (1.0-2.8); Alkaline Phosphatase 78 U/L (38-126); Aspartate Aminotransferase 31 IU/L (14-36); Bilirubin Total 0.6 mg/dL (0.2-1.3); Blood Urea Nitrogen 23 mg/dL (7-17); Calcium 9.5 mg/dL (8.4-10.2); Carbon Dioxide 27 mmol/L (22-32); Chloride 104 mmol/L (98-107); Cholesterol 182 mg/dL (140-199); Estimated Glomerular Filt Rate > 60 mL/min (>60); Globulin 2.9 g/dL (1.7-4.1); Glucose 96 mg/dL (80-110); HDL Cholesterol 78 mg/dL (40-60); HEMOLYSIS 29 (0-50); LDL Cholesterol Calculated 86 mg/dL (<100); Potassium 4.5 mmol/L (3.4-5.1); Sodium 132 mmol/L (137-145); Triglycerides 90 mg/dL (35-150)
[2024-03-09 10:30] LABS: Vitamin D 25 Hydroxy (D3) 36.2 ng/mL (30.0-100.0)
[2024-03-09 10:42] LABS: TSH w/ Reflex to FT4 4.11 uIU/mL (0.47-4.68)
== END ==
LOC: LAB 09:32
PROVIDERS: PCP Family Medicine; Referring Provider Family Medicine; Visit Provider Family Medicine
DX: Z68.36 Body mass index [BMI] 36.0-36.9, adult (principal); E78.5 Hyperlipidemia, unspecified; E03.9 Hypothyroidism, unspecified
CPT/HCPCS: 36415; 80053; 80061; 82306; 84443; 85025

== ENCOUNTER → 2024-03-30 11:42 | Outpatient (CLI) | payer OTHER, SELFPAY ==
--- NOTE | 2024-03-30 11:43 | DI.CT.S_ITS ---
PROCEDURE: CT ANGIO HEAD INDICATIONS: new onset headache TECHNIQUE: Precontrast 4.5 mm thick angled axial sections acquired from the foramen magnum to the vertex. After the administration of intravenous contrast, 1 mm thick sections acquired through the [place] of [place]. Postcontrast 4.5 mm thick sections then re-acquired from the foramen magnum to the vertex. 10 mm thick styfgtv-xsvybwvis-eucalxuorc (MIP) reformats were acquired of the central intracranial vasculature. For radiation dose reduction, the following was used: automated exposure control, adjustment of mA and/or kV according to patient size. COMPARISON: None. FINDINGS: Image quality: Limited by bolus timing, with venous contamination. Anterior circulation: Intracranial internal carotid arteries are normal in size and flow. The flow within the paired anterior cerebral arteries is normal, although note is made that the left anterior cerebral artery is dominant to the right. The flow within the middle cerebral arteries is normal and symmetric. The anterior communicating artery is seen. No aneurysms are seen. Posterior circulation: Note is made of bilateral type origins of the posterior cerebral arteries, with an associated diminutive basilar artery. The flow within the posterior cerebral arteries is normal and symmetric. The distal vertebral arteries are overall small in size, yet otherwise unremarkable. No aneurysms are seen. CSF spaces: Ventricles are normal in size and shape. Basal cisterns are patent. No extra-axial fluid collections. Brain: No midline shift. No intracranial bleeds or masses. [place]-white matter interface appears intact. Skull and face: Calvarium and facial bones appear intact, without suspicious lesions. Sinuses: Visualized sinuses and mastoids are clear. IMPRESSION: No significant intracranial arterial abnormality is seen. No acute intracranial hemorrhage is seen. No significant intracranial arterial abnormality is seen. Additional findings: Pmjlgy-ja-Ehqpxe developmental anomalies. Dictated by: Ramu Rondon M.D. on 03/30/2024 at 12:49 Approved by: Ramu Rondon M.D. on 03/30/2024 at 12:51
== END ==
PROVIDERS: PCP Family Medicine; Referring Provider Family Medicine; Visit Provider Family Medicine
DX: R51.9 Headache, unspecified (principal)
CPT/HCPCS: 70496; Q9967

== ENCOUNTER → 2024-12-22 10:36 | Outpatient (CLI) | payer OTHER, SELFPAY ==
[2024-12-22 12:04] LABS: Add Manual Diff / Slide Review NO; Hematocrit 39.9 % (36-46); Hemoglobin 13.6 g/dL (12.0-16.0); Lymphocytes Absolute Auto 1500 /uL (1100-4500); Mean Corpuscular HGB Conc 34.1 % (30-36); Mean Corpuscular Hemoglobin 30.9 PG (26-34); Mean Corpuscular Volume 90.8 fL (80-100); Platelet Count 308 X10^3/uL (150-400)
[2024-12-22 12:23] LABS: Alanine Aminotransferase 24 IU/L (<35); Albumin 4.5 g/dL (3.5-5.0); Albumin Globulin Ratio 1.6 (1.0-2.8); Alkaline Phosphatase 89 U/L (38-126); Blood Urea Nitrogen 20 mg/dL (7-17); Calcium 9.6 mg/dL (8.4-10.2); Carbon Dioxide 24 mmol/L (22-32); Chloride 105 mmol/L (98-107); Cholesterol 254 mg/dL (140-199); Estimated Glomerular Filt Rate > 60 mL/min (>60); Globulin 2.8 g/dL (1.7-4.1); Glucose 106 mg/dL (70-99); HDL Cholesterol 80 mg/dL (40-60); HEMOLYSIS < 15 (0-50); Potassium 4.9 mmol/L (3.4-5.1); Sodium 137 mmol/L (137-145); Total Protein 7.3 g/dL (6.3-8.2); Triglycerides 78 mg/dL (35-150)
[2024-12-22 12:51] LABS: TSH w/ Reflex to FT4 2.75 uIU/mL (0.47-4.68)
== END ==
PROVIDERS: PCP Family Medicine; Referring Provider Family Medicine; Visit Provider Family Medicine
DX: E03.9 Hypothyroidism, unspecified (principal); E78.5 Hyperlipidemia, unspecified
CPT/HCPCS: 36415; 80053; 80061; 84443; 85025